=== PATIENT | male | born 1980 | race Caucasian/White ===

== ENCOUNTER 2016-07-12 14:10 | Outpatient (RCR) | payer MEDICARE, MEDICAID ==
[2016-06-28 13:47] LABS: BASOPHILS # (AUTO) 0.1 10^3/uL (0.0-0.1); BASOPHILS % (AUTO) 1 % (0-10); EOSINOPHILS # (AUTO) 0.3 10^3/uL (0.0-0.3); EOSINOPHILS % (AUTO) 2 % (0-10); LYMPHOCYTES # (AUTO) 6.2 X 10^3 (1.0-4.0); LYMPHOCYTES % (AUTO) 41 % (12-44); MEAN CORPUSCULAR HEMOGLOBIN 25 PG (25-34); MEAN CORPUSCULAR HGB CONC 31 G/DL (32-36); MEAN CORPUSCULAR VOLUME 81 FL (80-99); MEAN PLATELET VOLUME 8.8 FL (7.4-10.4); MONOCYTES # (AUTO) 1.6 X 10^3 (0.0-1.0); MONOCYTES % (AUTO) 11 % (0-12); NEUTROPHILS % (AUTO) 46 % (42-75); PLATELET COUNT 558 10^3/uL (130-400); RED BLOOD COUNT 4.94 10^6/uL (4.35-5.85); RED CELL DISTRIBUTION WIDTH 17.7 % (10.0-14.5); WHITE BLOOD COUNT 15.2 10^3/uL (4.3-11.0)
[2016-06-28 14:11] LABS: ALANINE AMINOTRANSFERASE 21 U/L (0-55); ALBUMIN 3.8 G/DL (3.2-4.5); ANION GAP 8 MMOL/L (5-14); ASPARTATE AMINO TRANSFERASE 26 U/L (5-34); BLOOD UREA NITROGEN 11 MG/DL (7-18); BUN/CREATININE RATIO 14; CALCIUM 9.5 MG/DL (8.5-10.1); CARBON DIOXIDE 28 MMOL/L (21-32); CHLORIDE 104 MMOL/L (98-107); CREATINE KINASE 118 U/L (30-200); CREATININE SERUM 0.79 MG/DL (0.60-1.30); GFR ESTIMATED > 60; GLUCOSE 101 MG/DL (70-105); SODIUM 140 MMOL/L (135-145); TOTAL PROTEIN 7.6 G/DL (6.4-8.2)
[2016-06-28 14:28] LABS: ANISOCYTOSIS SLIGHT; BAND NEUTROPHILS 2 %; BASOPHILS % (MANUAL) 1 %; EOSINOPHILS % (MANUAL) 0 %; HYPOCHROMASIA SLIGHT; LYMPHOCYTES % (MANUAL) 43 %; MICROCYTOSIS SLIGHT; NEUTROPHILS % (MANUAL) 46 %
[2016-06-28 14:33] LABS: BILIRUBIN,TOTAL 0.3 MG/DL (0.1-1.0)
[2016-06-28 14:35] LABS: ERYTHROCYTE SEDIMENTATION RATE 12 MM/HR (0-15)
[2016-07-05 13:27] LABS: BASOPHILS # (AUTO) 0.1 10^3/uL (0.0-0.1); BASOPHILS % (AUTO) 1 % (0-10); EOSINOPHILS # (AUTO) 0.4 10^3/uL (0.0-0.3); EOSINOPHILS % (AUTO) 3 % (0-10); LYMPHOCYTES # (AUTO) 6.7 X 10^3 (1.0-4.0); LYMPHOCYTES % (AUTO) 49 % (12-44); MEAN CORPUSCULAR HEMOGLOBIN 25 PG (25-34); MEAN CORPUSCULAR HGB CONC 31 G/DL (32-36); MEAN CORPUSCULAR VOLUME 82 FL (80-99); MEAN PLATELET VOLUME 8.7 FL (7.4-10.4); MONOCYTES # (AUTO) 1.2 X 10^3 (0.0-1.0); MONOCYTES % (AUTO) 9 % (0-12); NEUTROPHILS # (AUTO) 5.1 X 10^3 (1.8-7.8); NEUTROPHILS % (AUTO) 38 % (42-75); PLATELET COUNT 642 10^3/uL (130-400); RED BLOOD COUNT 4.76 10^6/uL (4.35-5.85); RED CELL DISTRIBUTION WIDTH 17.4 % (10.0-14.5); WHITE BLOOD COUNT 13.5 10^3/uL (4.3-11.0)
[2016-07-05 13:43] LABS: ANISOCYTOSIS SLIGHT; BAND NEUTROPHILS 0 %; BASOPHILS % (MANUAL) 2 %; EOSINOPHILS % (MANUAL) 6 %; LYMPHOCYTES % (MANUAL) 28 %; NEUTROPHILS % (MANUAL) 33 %; REACTIVE LYMPHOCYTES 18 %; TARGET CELLS SLIGHT
[2016-07-05 13:47] LABS: ALANINE AMINOTRANSFERASE 17 U/L (0-55); ALBUMIN 3.6 G/DL (3.2-4.5); ANION GAP 8 MMOL/L (5-14); ASPARTATE AMINO TRANSFERASE 18 U/L (5-34); BILIRUBIN,TOTAL < 0.1 MG/DL (0.1-1.0); BLOOD UREA NITROGEN 11 MG/DL (7-18); BUN/CREATININE RATIO 14; CALCIUM 9.3 MG/DL (8.5-10.1); CARBON DIOXIDE 27 MMOL/L (21-32); CHLORIDE 107 MMOL/L (98-107); CREATINE KINASE 152 U/L (30-200); GFR ESTIMATED > 60; GLUCOSE 77 MG/DL (70-105); POTASSIUM 3.9 MMOL/L (3.6-5.0); SODIUM 142 MMOL/L (135-145); TOTAL PROTEIN 6.8 G/DL (6.4-8.2)
[2016-07-05 13:49] LABS: ERYTHROCYTE SEDIMENTATION RATE 26 MM/HR (0-15)
[~2016-07-12 14:10] MED LIST: DIAZ5TAB3; HYDR-3816; LORA0.5T; TRAZ-28; TROS60CA4
[2016-07-12 14:23] LABS: BASOPHILS # (AUTO) 0.1 10^3/uL (0.0-0.1); BASOPHILS % (AUTO) 1 % (0-10); EOSINOPHILS # (AUTO) 0.2 10^3/uL (0.0-0.3); EOSINOPHILS % (AUTO) 1 % (0-10); LYMPHOCYTES # (AUTO) 6.4 X 10^3 (1.0-4.0); LYMPHOCYTES % (AUTO) 41 % (12-44); MEAN CORPUSCULAR HEMOGLOBIN 25 PG (25-34); MEAN CORPUSCULAR HGB CONC 31 G/DL (32-36); MEAN CORPUSCULAR VOLUME 80 FL (80-99); MEAN PLATELET VOLUME 8.6 FL (7.4-10.4); MONOCYTES # (AUTO) 1.8 X 10^3 (0.0-1.0); MONOCYTES % (AUTO) 12 % (0-12); NEUTROPHILS % (AUTO) 45 % (42-75); PLATELET COUNT 622 10^3/uL (130-400); RED BLOOD COUNT 4.86 10^6/uL (4.35-5.85); RED CELL DISTRIBUTION WIDTH 17.9 % (10.0-14.5); WHITE BLOOD COUNT 15.6 10^3/uL (4.3-11.0)
[2016-07-12 14:42] LABS: ALANINE AMINOTRANSFERASE 19 U/L (0-55); ALBUMIN 3.8 G/DL (3.2-4.5); ANION GAP 9 MMOL/L (5-14); ANISOCYTOSIS SLIGHT; ASPARTATE AMINO TRANSFERASE 34 U/L (5-34); BAND NEUTROPHILS 0 %; BASOPHILS % (MANUAL) 0 %; BILIRUBIN,TOTAL 0.3 MG/DL (0.1-1.0); BLOOD UREA NITROGEN 9 MG/DL (7-18); BUN/CREATININE RATIO 11; CALCIUM 9.5 MG/DL (8.5-10.1); CARBON DIOXIDE 29 MMOL/L (21-32); CHLORIDE 102 MMOL/L (98-107); CREATINE KINASE 274 U/L (30-200); EOSINOPHILS % (MANUAL) 1 %; GFR ESTIMATED > 60; GLUCOSE 83 MG/DL (70-105); HYPOCHROMASIA SLIGHT; LYMPHOCYTES % (MANUAL) 42 %; MICROCYTOSIS SLIGHT; NEUTROPHILS % (MANUAL) 45 %; POIKILOCYTOSIS SLIGHT; POTASSIUM 3.8 MMOL/L (3.6-5.0); SODIUM 140 MMOL/L (135-145); STOMATOCYTES SLIGHT; TARGET CELLS SLIGHT; TOTAL PROTEIN 7.4 G/DL (6.4-8.2)
[2016-07-12 15:49] LABS: ERYTHROCYTE SEDIMENTATION RATE 58 MM/HR (0-15)
== END 2016-08-05 15:10 | disposition home or self-care (01) ==
LOC: LAB 14:10
PROVIDERS: ATTEND Internal Medicine Infectious Disease
DX: M86.28 Subacute osteomyelitis, other site (principal); B95.62 Methicillin resistant Staphylococcus aureus infection as the cause of diseases classified elsewhere; B96.20 Unspecified Escherichia coli [E. coli] as the cause of diseases classified elsewhere
CPT/HCPCS: 36415; 80053; 82550; 85007; 85027; 85652

== ENCOUNTER → 2016-07-27 | Outpatient (RCR) | payer MEDICARE, MEDICAID | END | disposition home or self-care (01) | LOC: WOUNDCARE 04-28 09:22 | PROVIDERS: ATTEND Surgery | DX: L89.154 Pressure ulcer of sacral region, stage 4 (principal); L03.312 Cellulitis of back [any part except buttock and flank]; G82.21 Paraplegia, complete; M86.48 Chronic osteomyelitis with draining sinus, other site; D63.8 Anemia in other chronic diseases classified elsewhere; F90.9 Attention-deficit hyperactivity disorder, unspecified type | CPT/HCPCS: 11042; 11043; 11044; 11045; 11046; 11047; 87070; 87075; 87077; 87186; 87205; 97605; 99183; 99212 ==

== ENCOUNTER 2016-08-04 15:00 | Outpatient (RCR) | payer MEDICARE, MEDICAID | END 2016-08-12 11:45 | disposition home or self-care (01) | PROVIDERS: ATTEND Internal Medicine | DX: G82.21 Paraplegia, complete (principal) ==

== ENCOUNTER → 2016-08-05 | Outpatient (CLI) | payer MEDICARE, MEDICAID ==
[2016-08-05 15:43] LABS: ANION GAP 9 MMOL/L (5-14); BLOOD UREA NITROGEN 12 MG/DL (7-18); BUN/CREATININE RATIO 15; CALCIUM 9.2 MG/DL (8.5-10.1); CARBON DIOXIDE 27 MMOL/L (21-32); CHLORIDE 102 MMOL/L (98-107); GFR ESTIMATED > 60; GLUCOSE 80 MG/DL (70-105); POTASSIUM 3.8 MMOL/L (3.6-5.0); SODIUM 138 MMOL/L (135-145)
== END ==
LOC: LAB 15:02
PROVIDERS: ATTEND Surgery
DX: M86.48 Chronic osteomyelitis with draining sinus, other site (principal); L89.154 Pressure ulcer of sacral region, stage 4; G82.21 Paraplegia, complete; F90.9 Attention-deficit hyperactivity disorder, unspecified type; L92.8 Other granulomatous disorders of the skin and subcutaneous tissue
CPT/HCPCS: 36415; 80048

== ENCOUNTER → 2016-08-11 | Outpatient (CLI) | payer MEDICARE, MEDICAID ==
[~2016-08-11] MED LIST changes: +GADOBUTROL 7.5 MMOL/7.5 ML (GADAVIST) VIAL IV ONE
--- NOTE | 2016-08-11 19:04 | Diagnostic Imaging Report ---
PROCEDURE: MRI pelvis with and without contrast. TECHNIQUE: Multiplanar, multisequence MRI of the pelvis was performed with and without contrast. 6 mL of Gadavist is administered intravenously. INDICATION: Sacral ulcer. Soft tissue ulcer reaches the bone with history of osteomyelitis. FINDINGS: When compared to 06/10/2016, there is a significantly smaller size of the ulcer with soft tissue thickening seen of the area of the ulcer noted on 06/10/2016. There is significant soft tissue edema and enhancement seen around the destroyed first coccygeal segment. There is soft tissue thickening up to 0.8 cm anterior to the sacrum with inflammatory changes seen. There is T2 signal abnormality and enhancement noted in the posterior aspect of S3 and minimally in the inferior aspect of S4 and minimal enhancement seen in S5 segments. Only minimal sclerotic focus remaining at the first coccygeal segment is seen. There is mild remaining enhancement in the second, third, and fourth coccygeal segments. There is no definite enhancement seen in the posterior elements of the sacrum. IMPRESSION: There is still prominent edema and enhancement around the coccygeal and lower sacrum segments with bone marrow edema and enhancement seen similar to 06/10/2016, exam concerning for persistent osteomyelitis. Dictated by: Dictated on workstation # [id number]
== END ==
LOC: RAD 14:05
PROVIDERS: ATTEND Surgery
DX: M86.48 Chronic osteomyelitis with draining sinus, other site (principal); L89.154 Pressure ulcer of sacral region, stage 4; G82.21 Paraplegia, complete; F90.9 Attention-deficit hyperactivity disorder, unspecified type; L92.8 Other granulomatous disorders of the skin and subcutaneous tissue
CPT/HCPCS: 72197

== ENCOUNTER → 2016-08-20 | Outpatient (CLI) | payer MEDICARE, MEDICAID ==
[~2016-08-20] MED LIST changes: -GADOBUTROL 7.5 MMOL/7.5 ML (GADAVIST) VIAL IV ONE
--- NOTE | 2016-08-20 12:23 | Diagnostic Imaging Report ---
Indication: Pneumonia PA and lateral chest There are postop changes from corpectomy and fusion of the thoracic spine. The hardware appears intact. Vertebral alignment is normal. Heart size and pulmonary vascularity are normal. Lungs are clear. There are no effusions or pneumothoraces. There's been resection of left seventh rib. Impression: Postsurgical changes in the chest. There are no acute abnormalities seen. Dictated by: Dictated on workstation # [id number]
== END ==
LOC: RAD 11:29
PROVIDERS: ATTEND Surgery
DX: J15.9 Unspecified bacterial pneumonia (principal)
CPT/HCPCS: 71020

== ENCOUNTER 2016-10-18 13:41 | Outpatient (RCR) | payer MEDICARE, MEDICAID ==
[2016-09-06 14:23] LABS: BASOPHILS # (AUTO) 0.1 10^3/uL (0.0-0.1); BASOPHILS % (AUTO) 1 % (0-10); EOSINOPHILS # (AUTO) 0.1 10^3/uL (0.0-0.3); EOSINOPHILS % (AUTO) 1 % (0-10); LYMPHOCYTES # (AUTO) 5.4 X 10^3 (1.0-4.0); LYMPHOCYTES % (AUTO) 32 % (12-44); MEAN CORPUSCULAR HEMOGLOBIN 25 PG (25-34); MEAN CORPUSCULAR HGB CONC 32 G/DL (32-36); MEAN CORPUSCULAR VOLUME 78 FL (80-99); MEAN PLATELET VOLUME 9.2 FL (7.4-10.4); MONOCYTES # (AUTO) 1.6 X 10^3 (0.0-1.0); MONOCYTES % (AUTO) 10 % (0-12); NEUTROPHILS # (AUTO) 9.7 X 10^3 (1.8-7.8); NEUTROPHILS % (AUTO) 57 % (42-75); PLATELET COUNT 867 10^3/uL (130-400); RED BLOOD COUNT 4.89 10^6/uL (4.35-5.85); RED CELL DISTRIBUTION WIDTH 18.6 % (10.0-14.5); WHITE BLOOD COUNT 16.9 10^3/uL (4.3-11.0)
[2016-09-06 14:42] LABS: ALANINE AMINOTRANSFERASE 17 U/L (0-55); ALBUMIN 3.5 G/DL (3.2-4.5); ANION GAP 7 MMOL/L (5-14); ASPARTATE AMINO TRANSFERASE 21 U/L (5-34); BILIRUBIN,TOTAL 0.3 MG/DL (0.1-1.0); BLOOD UREA NITROGEN 11 MG/DL (7-18); BUN/CREATININE RATIO 12; CARBON DIOXIDE 28 MMOL/L (21-32); CHLORIDE 105 MMOL/L (98-107); CREATININE SERUM 0.92 MG/DL (0.60-1.30); GFR ESTIMATED > 60; GLUCOSE 98 MG/DL (70-105); POTASSIUM 4.8 MMOL/L (3.6-5.0); SODIUM 140 MMOL/L (135-145); TOTAL PROTEIN 6.9 G/DL (6.4-8.2)
[2016-09-06 15:02] LABS: ANISOCYTOSIS MODERATE; BAND NEUTROPHILS 0 %; BASOPHILS % (MANUAL) 0 %; EOSINOPHILS % (MANUAL) 0 %; HYPOCHROMASIA SLIGHT; LYMPHOCYTES % (MANUAL) 24 %; MICROCYTOSIS SLIGHT; NEUTROPHILS % (MANUAL) 54 %; REACTIVE LYMPHOCYTES 14 %; TARGET CELLS MODERATE
[2016-09-06 15:12] LABS: ERYTHROCYTE SEDIMENTATION RATE 25 MM/HR (0-15)
[2016-09-13 13:22] LABS: BASOPHILS # (AUTO) 0.1 10^3/uL (0.0-0.1); BASOPHILS % (AUTO) 1 % (0-10); EOSINOPHILS # (AUTO) 0.1 10^3/uL (0.0-0.3); EOSINOPHILS % (AUTO) 1 % (0-10); LYMPHOCYTES # (AUTO) 4.3 X 10^3 (1.0-4.0); LYMPHOCYTES % (AUTO) 42 % (12-44); MEAN CORPUSCULAR HEMOGLOBIN 25 PG (25-34); MEAN CORPUSCULAR HGB CONC 32 G/DL (32-36); MEAN CORPUSCULAR VOLUME 78 FL (80-99); MEAN PLATELET VOLUME 8.8 FL (7.4-10.4); MONOCYTES # (AUTO) 0.9 X 10^3 (0.0-1.0); MONOCYTES % (AUTO) 9 % (0-12); NEUTROPHILS # (AUTO) 4.9 X 10^3 (1.8-7.8); NEUTROPHILS % (AUTO) 48 % (42-75); PLATELET COUNT 645 10^3/uL (130-400); RED BLOOD COUNT 4.84 10^6/uL (4.35-5.85); RED CELL DISTRIBUTION WIDTH 17.5 % (10.0-14.5); WHITE BLOOD COUNT 10.3 10^3/uL (4.3-11.0)
[2016-09-13 13:40] LABS: ALANINE AMINOTRANSFERASE 17 U/L (0-55); ALBUMIN 3.5 G/DL (3.2-4.5); ANION GAP 10 MMOL/L (5-14); ASPARTATE AMINO TRANSFERASE 24 U/L (5-34); BILIRUBIN,TOTAL 0.2 MG/DL (0.1-1.0); BLOOD UREA NITROGEN 8 MG/DL (7-18); BUN/CREATININE RATIO 10; CARBON DIOXIDE 26 MMOL/L (21-32); CHLORIDE 105 MMOL/L (98-107); CREATININE SERUM 0.79 MG/DL (0.60-1.30); GFR ESTIMATED > 60; GLUCOSE 96 MG/DL (70-105); POTASSIUM 3.9 MMOL/L (3.6-5.0); SODIUM 141 MMOL/L (135-145); TOTAL PROTEIN 6.9 G/DL (6.4-8.2)
[2016-09-13 13:52] LABS: ERYTHROCYTE SEDIMENTATION RATE 55 MM/HR (0-15)
[2016-09-13 13:53] LABS: BASOPHILS % (MANUAL) 4 %; HYPOCHROMASIA MODERATE; LYMPHOCYTES % (MANUAL) 38 %; NEUTROPHILS % (MANUAL) 50 %; TARGET CELLS MODERATE
[2016-09-20 14:32] LABS: LYMPHOCYTES % (AUTO) 56 % (12-44); MEAN CORPUSCULAR HEMOGLOBIN 25 PG (25-34); MEAN CORPUSCULAR HGB CONC 32 G/DL (32-36); MEAN CORPUSCULAR VOLUME 78 FL (80-99); MEAN PLATELET VOLUME 9.1 FL (7.4-10.4); MONOCYTES % (AUTO) 9 % (0-12); NEUTROPHILS % (AUTO) 31 % (42-75); PLATELET COUNT 619 10^3/uL (130-400); RED BLOOD COUNT 5.24 10^6/uL (4.35-5.85); RED CELL DISTRIBUTION WIDTH 17.5 % (10.0-14.5); WHITE BLOOD COUNT 11.3 10^3/uL (4.3-11.0)
[2016-09-20 14:33] LABS: BASOPHILS # (AUTO) 0.1 10^3/uL (0.0-0.1); BASOPHILS % (AUTO) 1 % (0-10); EOSINOPHILS # (AUTO) 0.3 10^3/uL (0.0-0.3); EOSINOPHILS % (AUTO) 3 % (0-10); LYMPHOCYTES # (AUTO) 6.4 X 10^3 (1.0-4.0); NEUTROPHILS # (AUTO) 3.5 X 10^3 (1.8-7.8)
[2016-09-20 14:50] LABS: ERYTHROCYTE SEDIMENTATION RATE 21 MM/HR (0-15)
[2016-09-20 15:02] LABS: ALBUMIN 3.6 G/DL (3.2-4.5); ANION GAP 11 MMOL/L (5-14); ASPARTATE AMINO TRANSFERASE 38 U/L (5-34); BILIRUBIN,TOTAL 0.2 MG/DL (0.1-1.0); BLOOD UREA NITROGEN 13 MG/DL (7-18); BUN/CREATININE RATIO 15; CALCIUM 9.4 MG/DL (8.5-10.1); CARBON DIOXIDE 26 MMOL/L (21-32); CHLORIDE 102 MMOL/L (98-107); CREATININE SERUM 0.84 MG/DL (0.60-1.30); GFR ESTIMATED > 60; GLUCOSE 76 MG/DL (70-105); SODIUM 139 MMOL/L (135-145); TOTAL PROTEIN 7.2 G/DL (6.4-8.2)
[2016-09-20 15:16] LABS: ALANINE AMINOTRANSFERASE 28 U/L (0-55)
[2016-10-04 14:12] LABS: BASOPHILS # (AUTO) 0.1 10^3/uL (0.0-0.1); BASOPHILS % (AUTO) 1 % (0-10); EOSINOPHILS # (AUTO) 0.2 10^3/uL (0.0-0.3); EOSINOPHILS % (AUTO) 2 % (0-10); LYMPHOCYTES % (AUTO) 44 % (12-44); MEAN CORPUSCULAR HEMOGLOBIN 25 PG (25-34); MEAN CORPUSCULAR HGB CONC 32 G/DL (32-36); MEAN CORPUSCULAR VOLUME 79 FL (80-99); MEAN PLATELET VOLUME 8.9 FL (7.4-10.4); MONOCYTES % (AUTO) 8 % (0-12); NEUTROPHILS # (AUTO) 6.4 X 10^3 (1.8-7.8); NEUTROPHILS % (AUTO) 46 % (42-75); PLATELET COUNT 754 10^3/uL (130-400); RED BLOOD COUNT 5.35 10^6/uL (4.35-5.85); RED CELL DISTRIBUTION WIDTH 16.8 % (10.0-14.5); WHITE BLOOD COUNT 13.8 10^3/uL (4.3-11.0)
[2016-10-04 14:30] LABS: ALANINE AMINOTRANSFERASE 23 U/L (0-55); ALBUMIN 3.4 G/DL (3.2-4.5); ANION GAP 10 MMOL/L (5-14); ASPARTATE AMINO TRANSFERASE 25 U/L (5-34); BILIRUBIN,TOTAL 0.2 MG/DL (0.1-1.0); BLOOD UREA NITROGEN 10 MG/DL (7-18); BUN/CREATININE RATIO 13; CALCIUM 9.2 MG/DL (8.5-10.1); CARBON DIOXIDE 28 MMOL/L (21-32); CHLORIDE 103 MMOL/L (98-107); CREATININE SERUM 0.75 MG/DL (0.60-1.30); GFR ESTIMATED > 60; GLUCOSE 88 MG/DL (70-105); POTASSIUM 4.1 MMOL/L (3.6-5.0); SODIUM 141 MMOL/L (135-145); TOTAL PROTEIN 7.1 G/DL (6.4-8.2)
[2016-10-04 14:34] LABS: ANISOCYTOSIS SLIGHT; BAND NEUTROPHILS 1 %; BASOPHILS % (MANUAL) 1 %; EOSINOPHILS % (MANUAL) 1 %; HYPOCHROMASIA SLIGHT; LYMPHOCYTES % (MANUAL) 45 %; MICROCYTOSIS SLIGHT; NEUTROPHILS % (MANUAL) 46 %
[2016-10-04 14:35] LABS: TARGET CELLS SLIGHT
[2016-10-04 14:38] LABS: ERYTHROCYTE SEDIMENTATION RATE 5 MM/HR (0-15)
[2016-10-11 13:31] LABS: BASOPHILS # (AUTO) 0.1 10^3/uL (0.0-0.1); BASOPHILS % (AUTO) 1 % (0-10); EOSINOPHILS # (AUTO) 0.2 10^3/uL (0.0-0.3); EOSINOPHILS % (AUTO) 2 % (0-10); LYMPHOCYTES # (AUTO) 6.1 X 10^3 (1.0-4.0); LYMPHOCYTES % (AUTO) 52 % (12-44); MEAN CORPUSCULAR HEMOGLOBIN 25 PG (25-34); MEAN CORPUSCULAR HGB CONC 32 G/DL (32-36); MEAN CORPUSCULAR VOLUME 78 FL (80-99); MEAN PLATELET VOLUME 8.7 FL (7.4-10.4); MONOCYTES # (AUTO) 1.1 X 10^3 (0.0-1.0); MONOCYTES % (AUTO) 9 % (0-12); NEUTROPHILS # (AUTO) 4.3 X 10^3 (1.8-7.8); NEUTROPHILS % (AUTO) 37 % (42-75); PLATELET COUNT 723 10^3/uL (130-400); RED BLOOD COUNT 5.21 10^6/uL (4.35-5.85); RED CELL DISTRIBUTION WIDTH 17.2 % (10.0-14.5); WHITE BLOOD COUNT 11.8 10^3/uL (4.3-11.0)
[2016-10-11 14:00] LABS: BAND NEUTROPHILS 0 %; BASOPHILS % (MANUAL) 0 %; EOSINOPHILS % (MANUAL) 1 %; LYMPHOCYTES % (MANUAL) 28 %; NEUTROPHILS % (MANUAL) 43 %
[2016-10-11 14:01] LABS: ANISOCYTOSIS MODERATE; REACTIVE LYMPHOCYTES 19 %; TARGET CELLS SLIGHT
[2016-10-11 14:02] LABS: ERYTHROCYTE SEDIMENTATION RATE 1 MM/HR (0-15)
[2016-10-11 14:10] LABS: ALANINE AMINOTRANSFERASE 15 U/L (0-55); ALBUMIN 3.4 G/DL (3.2-4.5); ANION GAP 10 MMOL/L (5-14); ASPARTATE AMINO TRANSFERASE 20 U/L (5-34); BILIRUBIN,TOTAL 0.2 MG/DL (0.1-1.0); BLOOD UREA NITROGEN 6 MG/DL (7-18); BUN/CREATININE RATIO 8; CALCIUM 9.3 MG/DL (8.5-10.1); CARBON DIOXIDE 30 MMOL/L (21-32); CHLORIDE 103 MMOL/L (98-107); CREATININE SERUM 0.76 MG/DL (0.60-1.30); GFR ESTIMATED > 60; GLUCOSE 80 MG/DL (70-105); POTASSIUM 4.2 MMOL/L (3.6-5.0); SODIUM 143 MMOL/L (135-145)
[2016-10-18 13:59] LABS: BASOPHILS # (AUTO) 0.1 10^3/uL (0.0-0.1); BASOPHILS % (AUTO) 1 % (0-10); EOSINOPHILS # (AUTO) 0.4 10^3/uL (0.0-0.3); EOSINOPHILS % (AUTO) 3 % (0-10); LYMPHOCYTES # (AUTO) 5.4 X 10^3 (1.0-4.0); LYMPHOCYTES % (AUTO) 50 % (12-44); MEAN CORPUSCULAR HEMOGLOBIN 25 PG (25-34); MEAN CORPUSCULAR HGB CONC 32 G/DL (32-36); MEAN CORPUSCULAR VOLUME 79 FL (80-99); MEAN PLATELET VOLUME 9.2 FL (7.4-10.4); MONOCYTES # (AUTO) 1.1 X 10^3 (0.0-1.0); MONOCYTES % (AUTO) 10 % (0-12); NEUTROPHILS # (AUTO) 3.9 X 10^3 (1.8-7.8); NEUTROPHILS % (AUTO) 36 % (42-75); PLATELET COUNT 683 10^3/uL (130-400); RED BLOOD COUNT 5.24 10^6/uL (4.35-5.85); RED CELL DISTRIBUTION WIDTH 17.8 % (10.0-14.5); WHITE BLOOD COUNT 10.8 10^3/uL (4.3-11.0)
[2016-10-18 14:30] LABS: ALANINE AMINOTRANSFERASE 21 U/L (0-55); ALBUMIN 3.4 G/DL (3.2-4.5); ANION GAP 6 MMOL/L (5-14); ASPARTATE AMINO TRANSFERASE 26 U/L (5-34); BILIRUBIN,TOTAL 0.2 MG/DL (0.1-1.0); BLOOD UREA NITROGEN 12 MG/DL (7-18); BUN/CREATININE RATIO 14; CALCIUM 8.7 MG/DL (8.5-10.1); CARBON DIOXIDE 29 MMOL/L (21-32); CHLORIDE 107 MMOL/L (98-107); CREATININE SERUM 0.86 MG/DL (0.60-1.30); GFR ESTIMATED > 60; GLUCOSE 90 MG/DL (70-105); POTASSIUM 3.9 MMOL/L (3.6-5.0); SODIUM 142 MMOL/L (135-145); TOTAL PROTEIN 6.8 G/DL (6.4-8.2)
[2016-10-18 14:31] LABS: BAND NEUTROPHILS 0 %; LYMPHOCYTES % (MANUAL) 56 %; NEUTROPHILS % (MANUAL) 39 %
[2016-10-18 14:32] LABS: ANISOCYTOSIS MARKED; BASOPHILS % (MANUAL) 0 %; EOSINOPHILS % (MANUAL) 1 %; ERYTHROCYTE SEDIMENTATION RATE 9 MM/HR (0-15)
== END 2016-12-05 | disposition home or self-care (01) ==
LOC: LAB 13:41
PROVIDERS: ATTEND Internal Medicine Infectious Disease
DX: A49.1 Streptococcal infection, unspecified site (principal); A49.8 Other bacterial infections of unspecified site
CPT/HCPCS: 36415; 80053; 85007; 85025; 85027; 85652

== ENCOUNTER 2016-10-25 10:37 | Outpatient (RCR) | payer MEDICARE, MEDICAID | END 2016-10-26 | disposition home or self-care (01) | LOC: WOUNDCARE 10:37 | PROVIDERS: ATTEND Surgery | DX: L89.154 Pressure ulcer of sacral region, stage 4 (principal); L03.312 Cellulitis of back [any part except buttock and flank]; G82.21 Paraplegia, complete; M86.48 Chronic osteomyelitis with draining sinus, other site; D63.8 Anemia in other chronic diseases classified elsewhere; F90.9 Attention-deficit hyperactivity disorder, unspecified type; T65.222A Toxic effect of tobacco cigarettes, intentional self-harm, initial encounter | CPT/HCPCS: 11042; 11043; 11044; 11045; 11046; 11047; 36415; 80053; 85025; 85652; 87070; 87075; 87205; 97605; 99183; 99212 ==

== ENCOUNTER → 2016-11-08 | Outpatient (CLI) | payer MEDICARE, MEDICAID ==
[2016-11-08 13:47] LABS: BASOPHILS # (AUTO) 0.1 10^3/uL (0.0-0.1); BASOPHILS % (AUTO) 0 % (0-10); EOSINOPHILS # (AUTO) 0.1 10^3/uL (0.0-0.3); EOSINOPHILS % (AUTO) 1 % (0-10); LYMPHOCYTES # (AUTO) 4.4 X 10^3 (1.0-4.0); LYMPHOCYTES % (AUTO) 36 % (12-44); MEAN CORPUSCULAR HEMOGLOBIN 24 PG (25-34); MEAN CORPUSCULAR HGB CONC 31 G/DL (32-36); MEAN CORPUSCULAR VOLUME 78 FL (80-99); MEAN PLATELET VOLUME 9.8 FL (7.4-10.4); MONOCYTES # (AUTO) 0.9 X 10^3 (0.0-1.0); MONOCYTES % (AUTO) 7 % (0-12); NEUTROPHILS # (AUTO) 6.9 X 10^3 (1.8-7.8); NEUTROPHILS % (AUTO) 56 % (42-75); PLATELET COUNT 801 10^3/uL (130-400); RED CELL DISTRIBUTION WIDTH 18.1 % (10.0-14.5); WHITE BLOOD COUNT 12.3 10^3/uL (4.3-11.0)
[2016-11-08 14:07] LABS: ALANINE AMINOTRANSFERASE 8 U/L (0-55); ALBUMIN 3.6 G/DL (3.2-4.5); ANION GAP 6 MMOL/L (5-14); ASPARTATE AMINO TRANSFERASE 18 U/L (5-34); BILIRUBIN,TOTAL 0.4 MG/DL (0.1-1.0); BLOOD UREA NITROGEN 6 MG/DL (7-18); BUN/CREATININE RATIO 8; CALCIUM 9.5 MG/DL (8.5-10.1); CARBON DIOXIDE 31 MMOL/L (21-32); CHLORIDE 104 MMOL/L (98-107); GFR ESTIMATED > 60; GLUCOSE 109 MG/DL (70-105); POTASSIUM 3.9 MMOL/L (3.6-5.0); SODIUM 141 MMOL/L (135-145); TOTAL PROTEIN 7.5 G/DL (6.4-8.2)
[2016-11-08 14:12] LABS: ERYTHROCYTE SEDIMENTATION RATE 5 MM/HR (0-15)
== END ==
LOC: LAB 13:31
PROVIDERS: ATTEND Surgery
DX: M86.48 Chronic osteomyelitis with draining sinus, other site (principal); L89.154 Pressure ulcer of sacral region, stage 4; G82.21 Paraplegia, complete; T65.222A Toxic effect of tobacco cigarettes, intentional self-harm, initial encounter
CPT/HCPCS: 36415; 80053; 85025; 85652

== ENCOUNTER 2016-11-22 13:39 | Outpatient (RCR) | payer MEDICARE, MEDICAID | END 2016-11-22 16:00 | disposition home or self-care (01) | LOC: WOUNDCARE 13:39 | PROVIDERS: ATTEND Surgery | DX: L89.154 Pressure ulcer of sacral region, stage 4 (principal); L03.312 Cellulitis of back [any part except buttock and flank]; G82.21 Paraplegia, complete; M86.48 Chronic osteomyelitis with draining sinus, other site; D63.8 Anemia in other chronic diseases classified elsewhere; F90.9 Attention-deficit hyperactivity disorder, unspecified type | CPT/HCPCS: 11042; 11043; 11045; 87070; 87075; 87077; 87186; 87205; 97605 ==

== ENCOUNTER → 2019-06-20 | Outpatient (CLI) | payer MEDICARE, MEDICAID ==
[~2019-06-20] MED LIST changes: +HYDR-34; -HYDR-3816; +TRAZ-222; -TRAZ-28
== END ==
LOC: WOUNDCARE 14:20
PROVIDERS: ATTEND Surgery
DX: L89.613 Pressure ulcer of right heel, stage 3 (principal); G82.21 Paraplegia, complete; T65.222D Toxic effect of tobacco cigarettes, intentional self-harm, subsequent encounter; F17.218 Nicotine dependence, cigarettes, with other nicotine-induced disorders
CPT/HCPCS: 99213

== ENCOUNTER → 2019-07-02 | Outpatient (CLI) | payer MEDICARE, MEDICAID ==
[~2019-07-02] MED LIST changes: -DIAZ5TAB3; +DIAZ5TAB49; -TRAZ-222; +TROS60CA; -TROS60CA4; +TRZ50T
== END ==
LOC: WOUNDCARE 14:36
PROVIDERS: ATTEND Surgery
DX: L89.613 Pressure ulcer of right heel, stage 3 (principal); G82.21 Paraplegia, complete; T65.222A Toxic effect of tobacco cigarettes, intentional self-harm, initial encounter; F17.218 Nicotine dependence, cigarettes, with other nicotine-induced disorders; I96 Gangrene, not elsewhere classified
CPT/HCPCS: 11042

== ENCOUNTER → 2019-07-09 | Outpatient (CLI) | payer MEDICARE, MEDICAID ==
[~2019-07-09] MED LIST changes: +DIAZ5TAB3; -DIAZ5TAB49; +TRAZ-222; -TROS60CA; +TROS60CA4; -TRZ50T
== END ==
LOC: WOUNDCARE 14:41
PROVIDERS: ATTEND Surgery
DX: I96 Gangrene, not elsewhere classified (principal); L89.613 Pressure ulcer of right heel, stage 3; T65.222A Toxic effect of tobacco cigarettes, intentional self-harm, initial encounter; G82.21 Paraplegia, complete; F17.218 Nicotine dependence, cigarettes, with other nicotine-induced disorders
CPT/HCPCS: 99212

== ENCOUNTER → 2019-07-16 | Outpatient (CLI) | payer MEDICARE, MEDICAID | LOC: WOUNDCARE 14:36 | PROVIDERS: ATTEND Surgery | DX: I96 Gangrene, not elsewhere classified (principal); L89.613 Pressure ulcer of right heel, stage 3; G82.21 Paraplegia, complete; T65.222A Toxic effect of tobacco cigarettes, intentional self-harm, initial encounter; F17.218 Nicotine dependence, cigarettes, with other nicotine-induced disorders | CPT/HCPCS: 99212 ==

== ENCOUNTER → 2019-07-23 | Outpatient (CLI) | payer MEDICARE, MEDICAID | LOC: WOUNDCARE 14:56 | PROVIDERS: ATTEND Surgery | DX: I96 Gangrene, not elsewhere classified (principal); L89.613 Pressure ulcer of right heel, stage 3; T65.222A Toxic effect of tobacco cigarettes, intentional self-harm, initial encounter; G82.21 Paraplegia, complete; F17.218 Nicotine dependence, cigarettes, with other nicotine-induced disorders | CPT/HCPCS: 99212 ==

== ENCOUNTER → 2019-08-15 | Outpatient (CLI) | payer MEDICARE, MEDICAID ==
[~2019-08-15] MED LIST changes: -DIAZ5TAB3; +DIAZ5TAB49; -TRAZ-222; +TROS60CA; -TROS60CA4; +TRZ50T
== END ==
LOC: WOUNDCARE 12:59
PROVIDERS: ATTEND Orthopaedic Surgery Hand Surgery
DX: L89.323 Pressure ulcer of left buttock, stage 3 (principal); T65.222A Toxic effect of tobacco cigarettes, intentional self-harm, initial encounter; F17.218 Nicotine dependence, cigarettes, with other nicotine-induced disorders; G82.21 Paraplegia, complete
CPT/HCPCS: 11042

== ENCOUNTER → 2019-08-21 | Outpatient (CLI) | payer MEDICARE, MEDICAID | LOC: WOUNDCARE 14:37 | PROVIDERS: ATTEND Orthopaedic Surgery Hand Surgery | DX: L89.323 Pressure ulcer of left buttock, stage 3 (principal); T65.222A Toxic effect of tobacco cigarettes, intentional self-harm, initial encounter; F17.218 Nicotine dependence, cigarettes, with other nicotine-induced disorders; G82.21 Paraplegia, complete | CPT/HCPCS: 97597 ==

== ENCOUNTER → 2019-08-28 | Outpatient (CLI) | payer MEDICARE, MEDICAID | LOC: WOUNDCARE 14:35 | PROVIDERS: ATTEND Orthopaedic Surgery Hand Surgery | DX: L89.323 Pressure ulcer of left buttock, stage 3 (principal); T65.222A Toxic effect of tobacco cigarettes, intentional self-harm, initial encounter; F17.218 Nicotine dependence, cigarettes, with other nicotine-induced disorders; G82.21 Paraplegia, complete | CPT/HCPCS: 11042 ==

== ENCOUNTER → 2019-08-28 | Outpatient (CLI) | payer MEDICARE ==
--- NOTE | 2019-08-28 16:28 | Diagnostic Imaging Report ---
INDICATION: Pressure ulcer. History of sacral osteomyelitis. COMPARISON: 07/12/2016 FINDINGS: Single frontal radiographic view of the pelvis was obtained and demonstrates chronic appearing deformity of the left iliac wing. No acute fracture or dislocation of the pelvis is identified. SI joints are symmetric. Pubic symphysis is within normal limits. Bilateral femoroacetabular joint spaces appear appropriate on this single frontal view. No unexpected radiopaque foreign bodies are seen. No gross osteolytic processes are seen. IMPRESSION: 1. No acute radiographic abnormality of the osseous pelvis. Please note, osteomyelitis cannot be excluded based on radiographs alone. If there is concern for osteomyelitis, MRI is recommended. If MRI is contraindicated, triple phase bone scan could be performed. Dictated by: Dictated on workstation # [id number]
== END ==
LOC: RAD 15:30
PROVIDERS: ATTEND Orthopaedic Surgery Hand Surgery
DX: L89.323 Pressure ulcer of left buttock, stage 3 (principal); G82.21 Paraplegia, complete; T65.222D Toxic effect of tobacco cigarettes, intentional self-harm, subsequent encounter; F17.218 Nicotine dependence, cigarettes, with other nicotine-induced disorders
CPT/HCPCS: 72170

== ENCOUNTER → 2019-09-05 | Outpatient (CLI) | payer MEDICARE | LOC: WOUNDCARE 14:12 | PROVIDERS: ATTEND Orthopaedic Surgery Hand Surgery | DX: L89.323 Pressure ulcer of left buttock, stage 3 (principal); F17.218 Nicotine dependence, cigarettes, with other nicotine-induced disorders; G82.21 Paraplegia, complete; T65.222D Toxic effect of tobacco cigarettes, intentional self-harm, subsequent encounter; S51.812A Laceration without foreign body of left forearm, initial encounter; W25.XXXA Contact with sharp glass, initial encounter | CPT/HCPCS: 11042 ==

== ENCOUNTER → 2019-09-11 | Outpatient (CLI) | payer MEDICARE | LOC: WOUNDCARE 14:23 | PROVIDERS: ATTEND Orthopaedic Surgery Hand Surgery | DX: L89.323 Pressure ulcer of left buttock, stage 3 (principal); F17.218 Nicotine dependence, cigarettes, with other nicotine-induced disorders; G82.21 Paraplegia, complete; T65.222D Toxic effect of tobacco cigarettes, intentional self-harm, subsequent encounter; S51.812A Laceration without foreign body of left forearm, initial encounter; W25.XXXA Contact with sharp glass, initial encounter | CPT/HCPCS: 11042 ==

== ENCOUNTER → 2019-09-18 | Outpatient (CLI) | payer MEDICARE | LOC: WOUNDCARE 14:46 | PROVIDERS: ATTEND Orthopaedic Surgery Hand Surgery | DX: G82.21 Paraplegia, complete (principal); T65.222D Toxic effect of tobacco cigarettes, intentional self-harm, subsequent encounter; L89.323 Pressure ulcer of left buttock, stage 3; S51.812A Laceration without foreign body of left forearm, initial encounter; F17.218 Nicotine dependence, cigarettes, with other nicotine-induced disorders; I96 Gangrene, not elsewhere classified | CPT/HCPCS: 11042 ==

== ENCOUNTER → 2019-09-25 | Outpatient (CLI) | payer MEDICARE | LOC: WOUNDCARE 14:39 | PROVIDERS: ATTEND Surgery | DX: L89.323 Pressure ulcer of left buttock, stage 3 (principal); I96 Gangrene, not elsewhere classified; G82.21 Paraplegia, complete; T65.222D Toxic effect of tobacco cigarettes, intentional self-harm, subsequent encounter; F17.218 Nicotine dependence, cigarettes, with other nicotine-induced disorders | CPT/HCPCS: 99212 ==

== ENCOUNTER → 2019-10-02 | Outpatient (CLI) | payer MEDICARE | LOC: WOUNDCARE 14:43 | PROVIDERS: ATTEND Surgery | DX: L89.323 Pressure ulcer of left buttock, stage 3 (principal); G82.21 Paraplegia, complete; T65.222D Toxic effect of tobacco cigarettes, intentional self-harm, subsequent encounter; F17.218 Nicotine dependence, cigarettes, with other nicotine-induced disorders; E44.1 Mild protein-calorie malnutrition | CPT/HCPCS: 11042; 87070; 87077; 87186; 87205 ==

== ENCOUNTER → 2019-10-08 | Outpatient (CLI) | payer MEDICARE ==
[2019-10-08 14:45] LABS: BASOPHILS # (AUTO) 0.1 10^3/uL (0.0-0.1); BASOPHILS % (AUTO) 1 % (0-10); EOSINOPHILS # (AUTO) 0.1 10^3/uL (0.0-0.3); EOSINOPHILS % (AUTO) 1 % (0-10); HEMATOCRIT 46 % (40-54); HEMOGLOBIN 14.6 G/DL (13.3-17.7); LYMPHOCYTES # (AUTO) 3.7 X 10^3 (1.0-4.0); LYMPHOCYTES % (AUTO) 37 % (12-44); MEAN CORPUSCULAR HEMOGLOBIN 30 PG (25-34); MEAN CORPUSCULAR HGB CONC 32 G/DL (32-36); MEAN CORPUSCULAR VOLUME 95 FL (80-99); MONOCYTES % (AUTO) 10 % (0-12); NEUTROPHILS # (AUTO) 5.2 X 10^3 (1.8-7.8); NEUTROPHILS % (AUTO) 52 % (42-75); PLATELET COUNT 569 10^3/uL (130-400); RED CELL DISTRIBUTION WIDTH 14.1 % (10.0-14.5); WHITE BLOOD COUNT 10.1 10^3/uL (4.3-11.0)
[2019-10-08 15:08] LABS: ALANINE AMINOTRANSFERASE 12 U/L (0-55); ALBUMIN 4.1 GM/DL (3.2-4.5); ALKALINE PHOSPHATASE 81 U/L (40-136); BILIRUBIN,TOTAL 0.5 MG/DL (0.1-1.0); BUN/CREATININE RATIO 18; CALCIUM 9.5 MG/DL (8.5-10.1); CARBON DIOXIDE 28 MMOL/L (21-32); CHLORIDE 101 MMOL/L (98-107); CREATININE SERUM 0.82 MG/DL (0.60-1.30); GFR ESTIMATED > 60; GLUCOSE 86 MG/DL (70-105); POTASSIUM 4.6 MMOL/L (3.6-5.0); SODIUM 137 MMOL/L (135-145); TOTAL PROTEIN 7.6 GM/DL (6.4-8.2)
== END ==
LOC: LAB 14:31
PROVIDERS: ATTEND Surgery
DX: L89.323 Pressure ulcer of left buttock, stage 3 (principal); G82.21 Paraplegia, complete; T65.222D Toxic effect of tobacco cigarettes, intentional self-harm, subsequent encounter; F17.218 Nicotine dependence, cigarettes, with other nicotine-induced disorders; E44.1 Mild protein-calorie malnutrition
CPT/HCPCS: 36415; 80053; 84134; 85025

== ENCOUNTER → 2019-10-08 | Outpatient (CLI) | payer MEDICARE | LOC: WOUNDCARE 13:17 | PROVIDERS: ATTEND Surgery | DX: L89.323 Pressure ulcer of left buttock, stage 3 (principal); G82.21 Paraplegia, complete; T65.222D Toxic effect of tobacco cigarettes, intentional self-harm, subsequent encounter; F17.218 Nicotine dependence, cigarettes, with other nicotine-induced disorders; E44.1 Mild protein-calorie malnutrition; B95.62 Methicillin resistant Staphylococcus aureus infection as the cause of diseases classified elsewhere | CPT/HCPCS: 11042 ==

== ENCOUNTER → 2019-10-16 | Outpatient (CLI) | payer MEDICARE | LOC: WOUNDCARE 14:12 | PROVIDERS: ATTEND Surgery | DX: L89.323 Pressure ulcer of left buttock, stage 3 (principal); G82.21 Paraplegia, complete; T65.222D Toxic effect of tobacco cigarettes, intentional self-harm, subsequent encounter; F17.218 Nicotine dependence, cigarettes, with other nicotine-induced disorders; B95.62 Methicillin resistant Staphylococcus aureus infection as the cause of diseases classified elsewhere | CPT/HCPCS: 99213 ==

== ENCOUNTER → 2019-10-30 | Outpatient (CLI) | payer MEDICARE | LOC: WOUNDCARE 15:04 | PROVIDERS: ATTEND Surgery | DX: L89.323 Pressure ulcer of left buttock, stage 3 (principal); G82.21 Paraplegia, complete; T65.222D Toxic effect of tobacco cigarettes, intentional self-harm, subsequent encounter; F17.218 Nicotine dependence, cigarettes, with other nicotine-induced disorders; B95.62 Methicillin resistant Staphylococcus aureus infection as the cause of diseases classified elsewhere | CPT/HCPCS: 11042 ==

== ENCOUNTER → 2019-11-13 | Outpatient (CLI) | payer MEDICARE | LOC: WOUNDCARE 14:38 | PROVIDERS: ATTEND Surgery | DX: L89.323 Pressure ulcer of left buttock, stage 3 (principal); L92.8 Other granulomatous disorders of the skin and subcutaneous tissue; G82.21 Paraplegia, complete; T65.222D Toxic effect of tobacco cigarettes, intentional self-harm, subsequent encounter; F17.218 Nicotine dependence, cigarettes, with other nicotine-induced disorders; B95.62 Methicillin resistant Staphylococcus aureus infection as the cause of diseases classified elsewhere | CPT/HCPCS: 17250 ==

== ENCOUNTER → 2019-11-27 | Outpatient (CLI) | payer MEDICARE | LOC: WOUNDCARE 14:45 | PROVIDERS: ATTEND Surgery | DX: L89.323 Pressure ulcer of left buttock, stage 3 (principal); L92.8 Other granulomatous disorders of the skin and subcutaneous tissue; G82.21 Paraplegia, complete; T65.222D Toxic effect of tobacco cigarettes, intentional self-harm, subsequent encounter; F17.218 Nicotine dependence, cigarettes, with other nicotine-induced disorders; B95.62 Methicillin resistant Staphylococcus aureus infection as the cause of diseases classified elsewhere | CPT/HCPCS: 17250 ==

== ENCOUNTER 2021-06-22 05:31 | Outpatient (RCR) | payer MEDICARE ==
[2021-06-22] MEDS ORDERED: ACHD5005 PO (11:54)
[2021-06-22] MEDS ORDERED: VALA500T4 PO (11:54)
[2021-06-22] MEDS ORDERED: DIAZ5TAB49 PO (11:54)
[2021-06-22] MEDS ORDERED: DIAZ10TA3 PO (11:54)
[2021-06-22] MEDS ORDERED: OMEP20CA18 PO (11:54)
[2021-06-22] MEDS ORDERED: OXYB10TA29 PO (11:54)
[2021-06-22] MEDS ORDERED: BACL20TA PO (11:54)
== END 2021-06-25 15:23 | disposition home or self-care (01) ==
LOC: PREOP 05:31
PROVIDERS: ATTEND Surgery
DX: Z01.818 Encounter for other preprocedural examination (principal)

== ENCOUNTER 2021-06-29 09:33 | Day surgery (SDC) | payer MEDICARE ==
[~2021-06-29] VITALS: Ht 177.8 cm; Wt 54.4 kg
[~2021-06-29 09:33] MED LIST changes: +ACHD5005 PO; +BACL20TA PO; +DIAZ10TA3 PO; +DIAZ5TAB49 PO; +OMEP20CA18 PO; +OXYB10TA29 PO; +VALA500T4 PO
[2021-06-29] MEDS ORDERED: GLYCOPYRROLATE 0.2 MG/ML (ROBINUL) 2 ML VIAL IJ ONE (09:34)
[2021-06-29] MEDS ORDERED: LACTATED RINGERS 1,000 ML IV ONE (09:39)
[2021-06-29] MEDS ORDERED: LACTATED RINGERS 1,000 ML IV STA (09:40)
[2021-06-29] MEDS ORDERED: HURRICAINE EXT TUBE (BENZOCAINE) XX PRN (09:45)
[2021-06-29] MEDS ORDERED: PROPOFOL INJECTION 50 ML IV ONE (09:52)
[2021-06-29] MEDS ORDERED: MIDAZOLAM 2 MG/2 ML (VERSED) VIAL ONE ×2 (09:52→10:13)
[2021-06-29 09:55] VITALS: BP 119/84
--- NOTE | 2021-06-29 10:05 | Progress Note-Pre Operative ---
Pre-Operative Progress Note H&P Reviewed The H&P was reviewed, patient examined and no changes noted. Time Seen by Provider: 10:02 Date H&P Reviewed: Jun 29, 2021 Time H&P Reviewed: 10:02 Pre-Operative Diagnosis: GERD, Hematochezia MELANIE CHÁVEZ DO Jun 29, 2021 10:05
--- NOTE | 2021-06-29 10:53 | Progress Note-Post Operative ---
Post-Operative Progess Note Surgeon (s)/President And Chief Commercial Officer (s) Surgeon MELANIE CHÁVEZ DO President And Chief Commercial Officer: LATASHA BenavidesII Pre-Operative Diagnosis GERD, Hematochezia Post-Operative Diagnosis Gastritis Hiatal Hernia Colon polyp Proctitis Internal hemorrhoids rectal prolapse Procedure & Operative Findings Date of Procedure 06/29/21 Procedure Performed/Findings EGD with bx Colon with snare Colon with cold bx PROCEDURE NOTE: After informed consent was obtained, the patient was brought to the endoscopy suite, placed in bed in left lateral decubitus position. He was administered IV sedation by the SOCIAL SECURITY ASSESSOR who then monitored vitals the entire time, heart rate, blood pressure and pulse ox and the scope was inserted down the mouth through the esophagus into the stomach. On the way down, noted some mild esophagitis, took a picture, pushed into the stomach, pushed past the antrum into the duodenum. Duodenum looked good. Pulled back and noted some mild Gastritis (took a picture of this and the duodenum) did a biopsy of the antrum, then retroflexed the scope, saw a small hiatal hernia, took a picture of this and then pulled the scope into the GE junction and then did a biopsy of the GE junction. Pushed the scope back into the stomach, suctioned all the air out of the stomach. At this point pulled the scope up the esophagus and out the mouth. Switched camera, switched gloves, went down below, started the colonoscopy. Pushed all the way into about 140 cm to get all the way to cecum. On the way in, in the Ascending colon saw a polyp and elected to completely remove it by snare polypectomy. Once in the cecum took a picture of the appendiceal orifice, noted the ileocecal valve and then slowly withdrew the scope, insufflating to look circumferentially at the chaudhary starting in the cecum, up the ascending colon to the hepatic flexure, then down the transverse colon, splenic flexure, into the descending colon. Down into the sigmoid where I saw a small flat inflamed polyp and elected to do a cold biopsy; could not remove it with the snare. Finally into the rectum and retroflexed in the rectal vault. There was some inflammation, like a colitis and changes at the dentate line; also saw some minimal internal hemorrhoids and took a picture of this. The patient tolerated the procedure and he recovered in the endoscopy suite. Anesthesia Type IV sedation by Anesthesia Estimated Blood Loss Estimated blood loss (mL): scant Specimens/Packing Specimens Removed antral bx body of stomach bx GE jxn bx Asc colon polyp sigmoid colon polyp MELANIE CHÁVEZ DO Jun 29, 2021 10:53
--- NOTE | 2021-06-29 10:54 | Endoscopy Discharge Instruct ---
Endo Procedure/Findings Findings 1.: Hiatal Hernia, Gastritis 2.: Polyp 3.: Internal Hemorrhoids 4.: Other Findings (Proctitis and rectal prolapse) Discharge Instructions - Activity: You might feel a little sleepy until tomorrow. This is due to the medicine you received to relax you. Until tomorrow, you should: NOT drive a car, operate machinery or power tools. NOT drink any alcoholic beverages. NOT make any important decisions or sign importortant papers. Do not return to work until tomorrow, unless otherwise instructed. Resume previous activities tomorrow. Diet: Start by taking liquids. If you tolerate liquids, advance to solid food. 1.: EGD in 3 years 2.: Colonscopy in 5 years Notify Physician - If you experience excessive bleeding, unusual abdominal pain, fever, or chest pain, contact your doctor immediately. MELANIE CHÁVEZ DO Jun 29, 2021 10:54
[2021-06-29 11:30] VITALS: BP 98/63
[2021-06-29 12:05] VITALS: BP 98/63
--- NOTE | 2021-06-29 13:09 | Anesthesia-General Post-Op ---
MAC Patient Condition Mental Status/LOC: Same as Preop Cardiovascular: Satisfactory Nausea/Vomiting: Absent Respiratory: Satisfactory Pain: Controlled Complications: Absent Post Op Complications Complications None Follow Up Care/Instructions Patient Instructions None needed. Anesthesiology Discharge Order Discharge Order Patient was doing well after the procedure with no complaints, stable vital signs, no apparent adverse anesthesia problems. ANGELA PATTON DO Jun 29, 2021 13:09
== END 2021-06-29 12:05 | disposition home or self-care (01) ==
LOC: ENDO 09:33
PROVIDERS: ATTEND Surgery
DX: K29.50 Unspecified chronic gastritis without bleeding (principal); K21.00 Gastro-esophageal reflux disease with esophagitis, without bleeding; D12.2 Benign neoplasm of ascending colon; K63.5 Polyp of colon; K44.9 Diaphragmatic hernia without obstruction or gangrene; K64.8 Other hemorrhoids; K62.89 Other specified diseases of anus and rectum; K62.3 Rectal prolapse; K92.1 Melena; F17.210 Nicotine dependence, cigarettes, uncomplicated; Z79.891 Long term (current) use of opiate analgesic; Z79.899 Other long term (current) drug therapy; Z90.49 Acquired absence of other specified parts of digestive tract
CPT/HCPCS: 88305